=== PATIENT | female | born 1975 | race Two or more races ===

== ENCOUNTER 2023-12-06 06:14 | Emergency (ER) | payer MEDICAID ==
[~2023-12-06] VITALS: Ht 154.9 cm; Wt 69.5 kg
[2023-12-06 07:04] LABS: Rapid Strep A Screen-Throat Negative
[2023-12-06 07:39] VITALS: BP 128/94; PULSE 100; RESP 16; TEMP 98.6; O2SAT 97
[2023-12-06] MEDS ORDERED: PENI500T2 PO (07:57)
[2023-12-06] MEDS ORDERED: ACET500T58 PO (07:57)
[2023-12-06] MEDS ORDERED: NAPR-957 PO (07:57)
[2023-12-06] MEDS ORDERED: LIDO2SOL26 MT (07:57)
== END 2023-12-06 08:01 | disposition home or self-care (01) ==
LOC: ER 06:14
DX: J03.90 Acute tonsillitis, unspecified (principal); B34.9 Viral infection, unspecified; Z79.2 Long term (current) use of antibiotics; Z79.899 Other long term (current) drug therapy
CPT/HCPCS: 87070; 87880